=== PATIENT | female | born 1965 | race Caucasian/White ===

== ENCOUNTER 2020-03-04 17:19 | Emergency (ER) | payer SELFPAY ==
[~2020-03-04] VITALS: Ht 152.4 cm; Wt 45.4 kg
[~2020-03-04 17:19] MED LIST: ALBU2.5V8 INH; CITA10TA8 PO; OLME20TA17 PO
[2020-03-04 18:07] VITALS: BP 180/110
--- NOTE | 2020-03-04 18:34 | PHYS DOC ---
Past Medical History Past Medical History: Asthma, COPD, Hypertension Past Surgical History: Other Additional Past Surgical Histo: ANUERYSM, R. TOE AMPUTATION Smoking Status: Current Every Day Smoker Alcohol Use: Heavy Drug Use: None General Adult EDM: Chief Complaint: NOSEBLEED HPI: HPI: Patient is a 54 year old female who presents with nose bleed. Patient had two nose bleeds today, each lasting over an hour. Patient also reported coughing up blood from nasal drip and ears popping. Patient not bleeding currently, no recent trauma, and not a usual occurrence. Denies dizziness or lightheadedness. Denies use of blood thinner. Patient reports her work sent her in to be evaluated. Review of Systems: Review of Systems: Constitutional: Denies fever or chills Eyes: Denies redness or eye pain HENT: Denies nasal congestion or sore throat; reports epistaxis Respiratory: Denies cough. Cardiovascular: Denies chest pain or palpitations GI: Denies abdominal pain, nausea, or vomiting : Denies dysuria or hematuria Musculoskeletal: Denies back pain or joint pain Integument: Denies rash or skin lesions Neurologic: Denies headache, focal weakness or sensory changes Complete systems were reviewed and found to be within normal limits, except as documented in this note. Allergies: Allergies: Allergies Coded Allergies Type Severity Reaction Last Updated Verified No Known Drug Allergies 01/10/15 No Physical Exam: PE: Constitutional: Well developed, well nourished, no acute distress, non-toxic appearance HENT: Normocephalic, atraumatic. Dried blood noted around nose from previous nose bleeds. No active bleeding. Eyes: Conjunctiva normal, no discharge Neck: Normal range of motion, no tenderness, supple Lungs & Thorax: No respiratory distress, equal chest rise and fall Abdomen: Soft, no tenderness Skin: Warm, dry, no erythema, no rash Extremities: No tenderness, ROM intact, no edema Neurologic: Alert and oriented X 3, no focal deficits noted Psychologic: Affect normal, judgment normal Current Patient Data: Vital Signs: Vital Signs Date Time Temp Pulse Resp B/P (MAP) Pulse Ox O2 Delivery O2 Flow Rate FiO2 03/04/20 18:07 97.8 70 18 180/110 (133) 97 Room Air 97.8 Course & Med Decision Making: Course & Med Decision Making Patient is a 54 year old female presenting after having two nose bleeds today. Patient not currently bleeding. Denies dizziness/lightheadedness. Patient instructed to use humidifier at night time. Patient stable for discharge with outpatient follow-up with PCP. Discussed findings and plan with patient, who acknowledges understanding and agreement. Jessica Disclaimer: Jessica Disclaimer: This electronic medical record was generated, in whole or in part, using a voice recognition dictation system. Departure Departure Impression: Primary Impression: Epistaxis Disposition: 01 DC HOME SELF CARE/HOMELESS Condition: STABLE Referrals: NON,STAFF (PCP) Patient Instructions: Nosebleed, [id number] Additional Instructions: Use over the counter saline nasal spray to moisten area. Use humidifier at night. Use nasal clamp if bleeding returns. Blow out nose then apply clamp for next 15 mins. Repeat x 3 as needed. If symptoms continue after 4 attempts with nasal clamp or for further concern return to ED for further evaluation and treatment. SURINDER DANIEL DO Mar 04, 2020 18:34
== END 2020-03-04 18:40 | disposition home or self-care (01) ==
LOC: ER 17:19
DX: R04.0 Epistaxis (principal); R04.2 Hemoptysis; J45.909 Unspecified asthma, uncomplicated; I10 Essential (primary) hypertension; F17.200 Nicotine dependence, unspecified, uncomplicated; F10.20 Alcohol dependence, uncomplicated; Y90.9 Presence of alcohol in blood, level not specified
CPT/HCPCS: 99282